=== PATIENT | female | born 1995 | race African-American/Black ===

== ENCOUNTER 2017-12-22 15:03 | Inpatient (IN) | payer OTHER ==
[~2017-12-22] VITALS: Ht 167.6 cm; Wt 58.1 kg
[2017-12-22] VITALS (10 sets, daily range): BP systolic 116–148; BP diastolic 52–92
--- OUTSIDE RECORDS SUMMARY | 2017-12-22 15:18 | XMS REPORT | Continuity of Care Document ---
Author Author [facility] Organization [facility] Address Unknown Phone Unavailable Allergies Active Description Code Type Severity Reaction Onset Reported/Identified Relationship to Patient Clinical Status Yes No Known Allergies No Known Allergies Drug Allergy Unknown N/A 2014 Medications There is no data. Problems There is no data. Procedures There is no data. Results There is no data. Encounters ACCT No. Visit Date/Time Discharge Status Pt. Type Provider Facility Loc./Unit Complaint [id number] 02/15/2015 23:14:00 02/16/2015 00:35:00 DIS Emergency Destini BLANCO, Kostas Meyers [facility]
--- OUTSIDE RECORDS SUMMARY | 2017-12-22 15:18 | XMS REPORT | Referral Summary ---
Author Author [facility] Organization [facility] Address Unknown Phone Unavailable Care Team Providers Care Director Case Name Role Phone No PCP, Pt States PCP Encounter [facility] [id number] Date(s): 09/12/15 - 09/12/15 [facility] [address] [place] [address] [facility] Discharge Diagnosis: Axillary abscess Discharge Disposition: 01-Home or Self Care Attending Physician: Lili Loyd MD Attending Physician: Provider, Immediate Care Admitting Physician: Provider, Immediate Care Vital Signs Most recent to 1 oldest [Reference Range]: Temperature Oral 36.7 degC [35.8-37.3 degC] (09/12/15 12:54 PM) Peripheral Pulse 72 bpm Rate [60-100 bpm] (09/12/15 12:54 PM) Blood Pressure 134/72 mmHg [90-140/60-90 mmHg] (09/12/15 12:54 PM) SpO2 99 % (09/12/15 12:54 PM) Problem List No data available for this section Allergies, Adverse Reactions, Alerts No Known Medication Allergies Medications Bactrim DS 800 mg-160 mg oral tablet 1 tabs, Oral, BID, X 10 days, # 20 tabs, 0 Refill(s), Pharmacy: [facility] #[id number] Start Date: 09/12/15 Stop Date: 09/22/15 Status: Ordered Results No data available for this section Immunizations No data available for this section Procedures Procedure Date Related Diagnosis Body Site Incision and drainage of abscess (eg, 09/12/15 carbuncle, suppurative hidradenitis, cutaneous or subcutaneous abscess, cyst, furuncle, or paronychia); simple or single.. Social History Social History Type Response Smoking Status Never smoker Assessment and Plan Extracted from: Title: Office Visit Note Author: Lili Loyd MD Date: 09/12/15 Assessment/Plan Axillary abscess After cleaning the area with iodine, Pat dry, incision made using scalpel number 10, plenty of purulent drainage was drained, purulent drainage was sent for culture and sensitivity, area cleaned, Neosporin ointment applied, covered with gauze, covered with OpSite. Instructions on good hand washing is recommended, monitor for worsening signs and symptoms, Motrin OTC when necessary pain, will follow-up with culture and sensitivity result, use antibiotic as ordered, follow-up with PCP, questions has been answered, patient was discharged in stable condition, patient was verbally understanding. Ordered: Drain Skin Abscess, Simple/Single 96677 Office Visit Level 3 Est 55156 Wound Culture Orders: sulfamethoxazole-trimethoprim, 1 tabs, Oral, BID, X 10 days, # 20 tabs , 0 Refill(s), Pharmacy: [facility] #[id number] Addendum Rocephin 1 g IM 1 by emily Loyd Patient was up-to-date in her tetanus vaccine. 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
[2017-12-22 15:50] LABS: BASOPHILS % (AUTO) 0 % (0-10); EOSINOPHILS % (AUTO) 0 % (0-10); HEMATOCRIT 35 % (35-52); HEMOGLOBIN 12.6 G/DL (11.5-16.0); LYMPHOCYTES # (AUTO) 1.2 X 10^3 (1.0-4.0); LYMPHOCYTES % (AUTO) 9 % (12-44); MEAN CORPUSCULAR HEMOGLOBIN 30 PG (25-34); MEAN CORPUSCULAR HGB CONC 36 G/DL (32-36); MEAN CORPUSCULAR VOLUME 82 FL (80-99); MEAN PLATELET VOLUME 10.9 FL (7.4-10.4); MONOCYTES # (AUTO) 1.5 X 10^3 (0.0-1.0); MONOCYTES % (AUTO) 12 % (0-12); NEUTROPHILS # (AUTO) 10.2 X 10^3 (1.8-7.8); NEUTROPHILS % (AUTO) 79 % (42-75); PLATELET COUNT 226 10^3/uL (130-400); RED BLOOD COUNT 4.21 10^6/uL (4.35-5.85); RED CELL DISTRIBUTION WIDTH 11.3 % (10.0-14.5); WHITE BLOOD COUNT 12.9 10^3/uL (4.3-11.0)
[2017-12-22] MEDS ORDERED: NS IV 1000 ML 1,000 ML IV SCH ×2 (15:58→17:09)
[2017-12-22 16:11] LABS: ALANINE AMINOTRANSFERASE 51 U/L (0-55); ALKALINE PHOSPHATASE 61 U/L (40-136); BILIRUBIN,TOTAL 0.5 MG/DL (0.1-1.0); BUN/CREATININE RATIO 18; CALCIUM 9.3 MG/DL (8.5-10.1); CARBON DIOXIDE 22 MMOL/L (21-32); CHLORIDE 106 MMOL/L (98-107); CREATINE KINASE 129 U/L (29-168); CREATININE SERUM 0.78 MG/DL (0.60-1.30); GFR ESTIMATED > 60; GLUCOSE 115 MG/DL (70-105); POTASSIUM 3.7 MMOL/L (3.6-5.0); SODIUM 136 MMOL/L (135-145); TOTAL PROTEIN 7.1 GM/DL (6.4-8.2)
--- NOTE | 2017-12-22 16:12 | Diagnostic Imaging Report ---
INDICATION: Dizziness and weakness. EXAMINATION: Portable chest. FINDINGS: The lungs are well-aerated. There are no infiltrates. No masses. The heart is not enlarged. No hilar adenopathy. No pneumothorax or pleural effusion. No bony abnormality. IMPRESSION: Normal portable chest. Dictated by: Dictated on workstation # [id number]
[2017-12-22] MEDS ORDERED: hydrOXYzine (VISTARIL) 25 MG CAP PO ONE (17:15)
[2017-12-22 17:16] LABS: FREE T4 (FREE THYROXINE) 3.26 NG/DL (0.70-1.48)
[2017-12-22 17:17] LABS: BILIRUBIN,URINE NEGATIVE (NEGATIVE); CLARITY,URINE CLEAR; COLOR,URINE YELLOW; GLUCOSE, URINE (UA) NEGATIVE (NEGATIVE); KETONES,URINE NEGATIVE (NEGATIVE); LEUKOCYTE ESTERASE ,URINE 1+ (NEGATIVE); NITRITE,URINE NEGATIVE (NEGATIVE); PH,URINE 5 (5-9); PROTEIN,URINE NEGATIVE (NEGATIVE); UROBILINOGEN,URINE NORMAL (NORMAL)
[2017-12-22 17:26] LABS: BACTERIA,URINE NEGATIVE /HPF; WBC,URINE RARE /HPF
[2017-12-22 17:30] LABS: AMPHETAMINE SCREEN, URINE NEGATIVE (NEGATIVE); BARBITURATE SCREEN URINE NEGATIVE (NEGATIVE); BENZODIAZEPINES SCREEN URINE NEGATIVE (NEGATIVE); CANNABINOID SCREEN, URINE NEGATIVE (NEGATIVE); COCAINE SCREEN URINE NEGATIVE (NEGATIVE); METHADONE STAT NEGATIVE (NEGATIVE); METHAMPHETAMINE SCREEN URINE S NEGATIVE (NEGATIVE); OPIATE SCREEN URINE NEGATIVE (NEGATIVE); OXYCODONE STAT NEGATIVE (NEGATIVE); PROPOXYPHENE STAT NEGATIVE (NEGATIVE); TRICYCLIC ANTIDEPRESSANTS SCRE NEGATIVE (NEGATIVE)
--- OUTSIDE RECORDS SUMMARY | 2017-12-22 20:11 | XMS REPORT | Continuity of Care Document ---
Author Author [facility] Organization [facility] Address Unknown Phone Unavailable Allergies Active Description Code Type Severity Reaction Onset Reported/Identified Relationship to Patient Clinical Status Yes No Known Allergies No Known Allergies Drug Allergy Unknown N/A 2014 Medications There is no data. Problems There is no data. Procedures There is no data. Results There is no data. Encounters ACCT No. Visit Date/Time Discharge Status Pt. Type Provider Facility Loc./Unit Complaint [id number] 02/15/2015 23:14:00 02/16/2015 00:35:00 DIS Emergency Destini BLANCO, Kostas Meyers [facility]
[2017-12-22] MEDS ORDERED: HYDROcodone/APAP 5 MG/325 MG (LORTAB) TAB PO PRN (20:45)
[2017-12-22] MEDS ORDERED: LORazepam INJ 2 MG/ML (ATIVAN) VIAL IVP PRN (20:45)
[2017-12-22] MEDS ORDERED: fentaNYL INJECTION 100 MCG/2 ML AMP IVP PRN (20:45)
[2017-12-22] MEDS ORDERED: IBUPROFEN TABLET 200 MG TAB PO PRN (20:45)
[2017-12-22] MEDS ORDERED: ACETAMINOPHEN 500 MG TAB (TYLENOL) PO PRN (20:45)
[2017-12-22] MEDS ORDERED: ONDANSETRON 4 MG/2 ML (SDV) Z0FRAN IVP PRN (20:45)
[2017-12-22] MEDS: NS IV 1000 ML 1,000 ML IV SCH (21:00)
[2017-12-22] MEDS: CHOLESTYRAMINE 4 GM (QUESTRAN LITE, PREVALITE) PKT PO SCH (21:00)
[2017-12-22] MEDS: HYDROCORTISONE 100 MG/2 ML (Solu-CORTEF) VIAL IV SCH (21:00)
[2017-12-23] VITALS (13 sets, daily range): BP systolic 99–147; BP diastolic 40–88
[2017-12-23] MEDS: PROPYLTHIOURACIL 50 MG PO SCH ×7 (00:32→23:21)
[2017-12-23] MEDS: meTOprolol 5 MG/5 ML (LOPRESSOR) VIAL IV SCH ×3 (00:33→10:16)
[2017-12-23 03:33] LABS: BASOPHILS % (AUTO) 0 % (0-10); EOSINOPHILS % (AUTO) 0 % (0-10); HEMATOCRIT 31 % (35-52); LYMPHOCYTES # (AUTO) 1.1 X 10^3 (1.0-4.0); LYMPHOCYTES % (AUTO) 25 % (12-44); MEAN CORPUSCULAR HEMOGLOBIN 30 PG (25-34); MEAN CORPUSCULAR HGB CONC 35 G/DL (32-36); MEAN CORPUSCULAR VOLUME 84 FL (80-99); MEAN PLATELET VOLUME 10.7 FL (7.4-10.4); MONOCYTES # (AUTO) 0.4 X 10^3 (0.0-1.0); MONOCYTES % (AUTO) 8 % (0-12); NEUTROPHILS % (AUTO) 67 % (42-75); PLATELET COUNT 169 10^3/uL (130-400); RED BLOOD COUNT 3.72 10^6/uL (4.35-5.85); RED CELL DISTRIBUTION WIDTH 11.4 % (10.0-14.5); WHITE BLOOD COUNT 4.5 10^3/uL (4.3-11.0)
[2017-12-23 04:14] LABS: ALANINE AMINOTRANSFERASE 47 U/L (0-55); ALBUMIN 3.2 GM/DL (3.2-4.5); ALKALINE PHOSPHATASE 50 U/L (40-136); BILIRUBIN,TOTAL 0.4 MG/DL (0.1-1.0); BUN/CREATININE RATIO 19; CALCIUM 8.1 MG/DL (8.5-10.1); CARBON DIOXIDE 19 MMOL/L (21-32); CHLORIDE 113 MMOL/L (98-107); CREATININE SERUM 0.59 MG/DL (0.60-1.30); GFR ESTIMATED > 60; GLUCOSE 124 MG/DL (70-105); MAGNESIUM 1.7 MG/DL (1.8-2.4); PHOSPHORUS 4.2 MG/DL (2.3-4.7); POTASSIUM 4.1 MMOL/L (3.6-5.0); SODIUM 139 MMOL/L (135-145); TOTAL PROTEIN 5.6 GM/DL (6.4-8.2)
--- NOTE | 2017-12-23 04:47 | ED Syncope ---
General Chief Complaint: General Problems/Pain Stated Complaint: THYROID STORM Nursing Triage Note: AMB TO ROOM WITH. HAS BEEN AT [employer]ARD STANDING OUTSIDE BECAME DIZZY AND WEAK. REPORTS HAS NOT BEEN EATING RIGHT FOR SEVERAL DAYS. ON ADMIT ALSO APPEARS ANXIOUS AND TEARFUL. Source of Information: Patient Exam Limitations: No Limitations History of Present Illness Date Seen by Provider: Dec 22, 2017 Time Seen by Provider: 15:15 Initial Comments 22-year-old female patient presents to the emergency Department with reports of feeling dizzy and lightheaded while at [employer] today. Patient states she is from [place] and hear through the weekend for [employer]'s training. States she's not had much of an appetite and has not been eating much the last several days. She tried drinking lemonade thinking her blood sugar was low, without improvement in symptoms. Patient is anxious, tachycardic, avoids eye contact. Initially patient is very difficult to get information from. Repeatedly states "I don't want to talk about it." I have discussed with the patient that it would be helpful for her to elaborate on events leading up to today to help me care for her appropriately. Patient does report being under a lot of stress recently. States she has had some traumatizing events and her preteen years. Is also had stressors between her family and herself. She has had difficulty finding a job and [place]. States her father lives in [place] and her mother lives in [place]. Her father is also in the [employer]. Has felt depressed and anxious for quite some time. States she has had thoughts of the last several weeks of harming yourself as well as occasionally having thoughts of how she would proceed with harming herself. Does not have a definite plan. She does suffer from difficulty sleeping, palpitations, and irritability. She does admit to losing weight, but is unsure of exactly how much. Patient states approximately one year ago she weighed 130 pounds. Patient is currently on her menstrual cycle now. Location Injury Occurred: denies known injury Symptoms Prior to Episode: Lightheadedness, Nausea, Rapid Heart Rate Precipitating Factors: Standing (standing outside) Loss of Consciousness: No Loss of Consciousness Allergies and Home Medications Allergies Coded Allergies: avocado (Verified Allergy, Unknown, 12/22/17) latex (Verified Allergy, Unknown, 12/22/17) Home Medications No Active Prescriptions or Reported Meds Patient Home Medication List Home Medication List Reviewed: Yes Constitutional: see HPI, No chills, No diaphoresis, dizziness, No fever, No malaise, weakness, weight loss EENTM: see HPI Respiratory: No cough, No dyspnea on exertion, No phlegm, No short of breath Cardiovascular: No chest pain, No edema, palpitations, No syncope Gastrointestinal: No abdominal pain, No constipation, No diarrhea, No hematemesis, loss of appetite, No melena, nausea Genitourinary: No decreased output, No discharge, No dysuria, No frequency, No hematuria, No pain : No Musculoskeletal: no symptoms reported Skin: no symptoms reported Psychiatric/Neurological: See HPI, Anxiety, Depressed, Denies Headache, Denies Numbness, Denies Paresthesia, Denies Seizure, Denies Tingling, Denies Weakness All Other Systems Reviewed Negative Unless Noted: Yes (Negative excepted noted.) Past Ezosjpu-Lvpoup-Pqrvro Hx Patient Social History Alcohol Use: Occasionally Uses Recreational Drug Use: No Smoking Status: Never a Smoker Recent Foreign Travel: No Contact w/Someone Who Travel: No Recent Infectious Disease Expo: No Immunizations Up To Date Date of Influenza Vaccine: Oct 29, 2017 Seasonal Allergies Seasonal Allergies: No Surgeries History of Surgeries: No Respiratory History of Respiratory Disorde: No Cardiovascular History of Cardiac Disorders: No Neurological History of Neurological Disord: No Reproductive System : No Hx Reproductive Disorders: No Female Reproductive Disorders: Denies Genitourinary History of Genitourinary Disor: No Gastrointestinal History of Gastrointestinal Di: No Endocrine History of Endocrine Disorders: No HEENT History of HEENT Disorders: No Cancer History of Cancer: No Psychosocial History of Psychiatric Problem: Yes Behavioral Health Disorders: Anxiety Integumentary History of Skin or Integumenta: No Reviewed Nursing Assessment Reviewed/Agree w Nursing PMH: Yes Family Medical History Significant Family History: No Pertinent Family Hx Family Medial History: Patient reports no known family medical history. Physical Exam Vital Signs Vital Signs - First Documented 12/22/17 15:13 Temp 98.2 Pulse 137 Resp 18 B/P (MAP) 135/87 (103) Pulse Ox 98 O2 Delivery Room Air Capillary Refill : Less Than 3 Seconds General Appearance: WD/WN, Mild Distress (patient is very tearful and anxious.) HEENT: PERRL/EOMI, TMs Normal, Normal ENT Inspection, Pharynx Normal Neck: Normal Inspection, Non Tender, Supple Cardiovascular: No Edema, No Gallop, No Murmur, Normal Peripheral Pulses, Tachycardia Respiratory: Lungs Clear, Normal Breath Sounds, No Accessory Muscle Use, No Respiratory Distress Gastrointestinal: Normal Bowel Sounds, No Organomegaly, Non Tender, Soft Back: Normal Inspection Extremities: Normal Capillary Refill, No Calf Tenderness, No Pedal Edema, Other (vitiligo of the hands over the mcp, pip, and dip joints of the bilateral hands noted. 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 anxious.) Cranial Nerves: Normal Hearing, Normal Speech, PERRL Coordination/Gait: Normal Gait Motor/Sensory: No Motor Deficit, No Sensory Deficit Skin: Normal Color, Warm/Dry, Other Progress/Results/Core Measures Results/Orders Lab Results Laboratory Tests Test 12/22/17 15:36 12/22/17 17:12 Range/Units White Blood Count 12.9 H 4.3-11.0 10^3/uL Red Blood Count 4.21 L 4.35-5.85 10^6/uL Hemoglobin 12.6 11.5-16.0 G/DL Hematocrit 35 35-52 % Mean Corpuscular Volume 82 80-99 FL Mean Corpuscular Hemoglobin 30 25-34 PG Mean Corpuscular Hemoglobin Concent 36 32-36 G/DL Red Cell Distribution Width 11.3 10.0-14.5 % Platelet Count 226 130-400 10^3/uL Mean Platelet Volume 10.9 H 7.4-10.4 FL Neutrophils (%) (Auto) 79 H 42-75 % Lymphocytes (%) (Auto) 9 L 12-44 % Monocytes (%) (Auto) 12 0-12 % Eosinophils (%) (Auto) 0 0-10 % Basophils (%) (Auto) 0 0-10 % Neutrophils # (Auto) 10.2 H 1.8-7.8 X 10^3 Lymphocytes # (Auto) 1.2 1.0-4.0 X 10^3 Monocytes # (Auto) 1.5 H 0.0-1.0 X 10^3 Eosinophils # (Auto) 0.0 0.0-0.3 10^3/uL Basophils # (Auto) 0.0 0.0-0.1 10^3/uL Sodium Level 136 135-145 MMOL/L Potassium Level 3.7 3.6-5.0 MMOL/L Chloride Level 106 98-107 MMOL/L Carbon Dioxide Level 22 21-32 MMOL/L Anion Gap 8 5-14 MMOL/L Blood Urea Nitrogen 14 7-18 MG/DL Creatinine 0.78 0.60-1.30 MG/DL Estimat Glomerular Filtration Rate > 60 BUN/Creatinine Ratio 18 Glucose Level 115 H 70-105 MG/DL Calcium Level 9.3 8.5-10.1 MG/DL Magnesium Level 2.0 1.8-2.4 MG/DL Total Bilirubin 0.5 0.1-1.0 MG/DL Aspartate Amino Transf (AST/SGOT) 28 5-34 U/L Alanine Aminotransferase (ALT/SGPT) 51 0-55 U/L Alkaline Phosphatase 61 40-136 U/L Total Creatine Kinase 129 29-168 U/L Troponin I < 0.30 <0.30 NG/ML C-Reactive Protein High Sensitivity 0.04 0.00-0.50 MG/DL Total Protein 7.1 6.4-8.2 GM/DL Albumin 4.0 3.2-4.5 GM/DL Free Thyroxine 3.26 H 0.70-1.48 NG/DL TSH [place] Testing 0.00 L 0.35-4.94 UIU/ML Serum Alcohol < 10 <10 MG/DL Urine Color YELLOW Urine Clarity CLEAR Urine pH 5 5-9 Urine Specific [place] 1.010 L 1.016-1.022 Urine Protein NEGATIVE NEGATIVE Urine Glucose (UA) NEGATIVE NEGATIVE Urine Ketones NEGATIVE NEGATIVE Urine Nitrite NEGATIVE NEGATIVE Urine Bilirubin NEGATIVE NEGATIVE Urine Urobilinogen NORMAL NORMAL MG/DL Urine Leukocyte Esterase 1+ H NEGATIVE Urine RBC (Auto) 3+ H NEGATIVE Urine RBC NONE /HPF Urine WBC RARE /HPF Urine Squamous Epithelial Cells 5-10 /HPF Urine Crystals NONE /LPF Urine Bacteria NEGATIVE /HPF Urine Casts NONE /LPF Urine Mucus NEGATIVE /LPF Urine Culture Indicated NO Urine Test NEGATIVE NEGATIVE Urine Opiates Screen NEGATIVE NEGATIVE Urine Oxycodone Screen NEGATIVE NEGATIVE Urine Methadone Screen NEGATIVE NEGATIVE Urine Propoxyphene Screen NEGATIVE NEGATIVE Urine Barbiturates Screen NEGATIVE NEGATIVE Ur Tricyclic Antidepressants Screen NEGATIVE NEGATIVE Urine Phencyclidine Screen NEGATIVE NEGATIVE Urine Amphetamines Screen NEGATIVE NEGATIVE Urine Methamphetamines Screen NEGATIVE NEGATIVE Urine Benzodiazepines Screen NEGATIVE NEGATIVE Urine Cocaine Screen NEGATIVE NEGATIVE Urine Cannabinoids Screen NEGATIVE NEGATIVE My Orders Orders - GHAZAL BRAUN Saline Lock/Iv-Start (12/22/17 15:28) Ekg Tracing (12/22/17 15:28) Monitor-Rhythm Ecg Trace Only (12/22/17 15:28) Alcohol (12/22/17 15:28) Cbc With Automated Diff (12/22/17 15:28) Comprehensive Metabolic Panel (12/22/17 15:28) Creatine Kinase (12/22/17 15:28) Hs C Reactive Protein (12/22/17 15:28) Drug Screen Stat (Urine) (12/22/17 15:28) Magnesium (12/22/17 15:28) Thyroid Analyzer (12/22/17 15:28) Troponin I (12/22/17 15:28) Ua Culture If Indicated (12/22/17 15:28) Chest 1 View, Ap/Pa Only (12/22/17 15:28) Ns Iv 1000 Ml (Sodium Chloride 0.9%) (12/22/17 15:58) Free T4 (Free Thyroxine) (12/22/17 15:36) Saline Lock/Iv-Start (12/22/17 17:09) Ns Iv 1000 Ml (Sodium Chloride 0.9%) (12/22/17 17:09) Hydroxyzine Oral (Vistaril Capsule) (12/22/17 17:15) Hcg,Qualitative Urine (12/22/17 17:23) General/Regular (12/22/17 Lunch) General/Regular (12/22/17 Lunch) Medications Given in ED Vital Signs/I&O Vital Sign - Last 12Hours 12/22/17 12/22/17 12/22/17 12/22/17 15:13 17:40 19:00 20:02 Temp 98.2 98.0 Pulse 137 120 137 134 Resp 18 18 23 20 B/P (MAP) 135/87 (103) 142/92 (109) 148/74 (98) 139/79 (98) Pulse Ox 98 100 99 99 O2 Delivery Room Air Room Air Room Air Intake and Output 12/23/17 00:00 Intake Total 2000 ml Balance 2000 ml Blood Pressure Mean: 82 ECG Initial ECG Impression Date: Dec 22, 2017 Initial ECG Impression Time: 15:40 Initial ECG Rate: 132 Initial ECG Rhythm: S.Tach Initial ECG Comparisson: No Previous ECG Available Comment Sinus tachycardia. No STEMI or arrhythmia noted. ECG reviewed and discussed with Dr. Godoy. Diagnostic Imaging Diagonstic Imaging: Xray Plain Films/CT/US/NM/MRI: chest Comments FINDINGS: The lungs are well-aerated. There are no infiltrates. No masses. The heart is not enlarged. No hilar adenopathy. No pneumothorax or pleural effusion. No bony abnormality. IMPRESSION: Normal portable chest. Dictated by: Dictated on workstation # [id number] Reviewed: Reviewed by Me (radiology report reviewed by me) Departure Communication (Admissions) Communication Dr. Brown graciously accepts patient to her internal medicine service for Lopressor, PTU, echo, cardiac monitoring in ICU, and further evaluation for thyroid storm. Progress Notes Patient was weighed in the emergency department. 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 Patient reports weighing 130 pounds one year ago. Impression Impression: Primary Impression: Thyroid storm Additional Impressions: Anxiety as acute reaction to gross stress Suicidal ideation Vitiligo Disposition: ADMITTED INPATIENT Condition: Stable Admissions Decision to Admit Reason: Admit from ER (General) Decision to Admit/Date: Dec 22, 2017 Departure-Patient Inst. Referrals: NO,LOCAL PHYSICIAN (PCP) Primary Care Physician Scripts No Active Prescriptions or Reported Meds GHAZAL BRAUN Dec 23, 2017 04:47
[2017-12-23] MEDS: HYDROCORTISONE 100 MG/2 ML (Solu-CORTEF) VIAL IV SCH ×3 (05:10→21:45)
[2017-12-23] MEDS: NS IV 1000 ML 1,000 ML IV SCH (05:10)
[2017-12-23] MEDS: MAGNESIUM 1 GM/100 ML IVPB 100 ML IV SCH ×2 (05:11→06:32)
[2017-12-23] MEDS ORDERED: MAGNESIUM 1 GM/100 ML IVPB 100 ML IV SCH (06:00)
[2017-12-23] MEDS ORDERED: KCL 20 MEQ TAB (K-DUR) PO SCH (06:00)
[2017-12-23] MEDS ORDERED: POTASSIUM CL 10MEQ/50ML IVPB 50 ML IV SCH (06:00)
--- NOTE | 2017-12-23 09:43 | Diagnostic Imaging Report ---
INDICATION: Shortness of breath EXAM: Portable chest at 3:48 AM FINDINGS: The heart size and pulmonary vascularity are normal. The lungs are clear. There are no effusions or pneumothoraces. IMPRESSION: Negative chest. Dictated by: Dictated on workstation # [id number]
[2017-12-23] MEDS: CHOLESTYRAMINE 4 GM (QUESTRAN LITE, PREVALITE) PKT PO SCH ×4 (10:16→20:08)
[2017-12-23] MEDS ORDERED: meTOprolol SUCCINATE 100 MG (TOPROL XL) TAB PO ONE (11:15)
--- NOTE | 2017-12-23 11:47 | History & Physical-Hospitalist ---
HPI History of Present Illness: HPI/Chief Complaint CC: Syncope with nausea and palpitations HPI: This is a 22yoWF from [place], [place] who was in [place] for [employer] training who presented to the ER after syncope sustained during training session. Presented to the ER and extensive w/u ensued due to 30# wt loss in past few months. Pt was found to have findings c/w acute thyroid storm in need of critical care management. Pt was placed on PTU 200mg PO Q4hrs along with Hydrocortisone and ECHO was ordered and Dr Mares and Dr Oconnor was consulted. Pt did well through the night and is no longer nauseated and is drinking and eating well. Will transfer to 4th floor, heplock fluid and will ambulate. Paper was filled out for and given to ICU. Source: patient, RN/MD Exam Limitations: no limitations Date Seen 12/23/17 Time Seen by Provider: 10:30 Attending Physician Ingrid Love DO PCP No,Local Physician Referring Physician Date of Admission Dec 22, 2017 at 20:08 Home Medications & Allergies Home Medications Reviewed patient Home Medication Reconciliation Form Allergies Allergies Coded Allergies avocado (Verified Allergy, Unknown, 12/22/17) latex (Verified Allergy, Unknown, 12/22/17) Past Qykfbua-Fuamzp-Wizlkn Hx Patient Social History Marrital Status: single Employed/Student: employed ([employer]) Alcohol Use: Occasionally Uses Recreational Drug Use: No Smoking Status: Never a Smoker Physical Abuse Screen: No Sexual Abuse: No Recent Foreign Travel: No Contact w/other who traveled: No Recent Infectious Disease Expo: No Immunizations Up To Date Date of Influenza Vaccine: Oct 29, 2017 Seasonal Allergies Seasonal Allergies: No Surgeries No Respiratory No Cardiovascular No Neurological No Reproductive System : No Hx Reproductive Disorders: No Female Reproductive Disorders: Denies Genitourinary No Gastrointestinal No Endocrine History of Endocrine Disorders: No HEENT History of HEENT Disorders: No Cancer No Psychosocial History of Psychiatric Problem: Yes Behavioral Health Disorders: Anxiety Integumentary History of Skin or Integumenta: No Reviewed Nursing Assessment Reviewed/Agree w Nursing PMH: Yes Family Medical History Significant Family History: No Pertinent Family Hx Family Hx: Patient reports no known family medical history. Review of Systems Constitutional: see HPI, diaphoresis, dizziness, fever, malaise, weakness, weight loss EENTM: blurred vision Respiratory: no symptoms reported Cardiovascular: palpitations Gastrointestinal: loss of appetite, nausea Genitourinary: no symptoms reported Musculoskeletal: no symptoms reported Skin: no symptoms reported Psychiatric/Neurological: No Symptoms Reported All Other Systems Reviewed Negative Unless Noted: Yes Physical Exam Physical Exam Vital Signs Vital Signs - First Documented 12/22/17 15:13 Temp 98.2 Pulse 137 Resp 18 B/P (MAP) 135/87 (103) Pulse Ox 98 O2 Delivery Room Air Capillary Refill : Less Than 3 Seconds General Appearance: No Apparent Distress, WD/WN, Chronically ill, Thin Eyes: Bilateral Eye Normal Inspection, Bilateral Eye PERRL HEENT: PERRL/EOMI, Normal ENT Inspection, Pharynx Normal Neck: Full Range of Motion, Normal Inspection, Non Tender, Supple, Carotid Bruit Respiratory: Chest Non Tender, Lungs Clear, Normal Breath Sounds, No Accessory Muscle Use, No Respiratory Distress Cardiovascular: No Edema, No Gallop, No JVD, No Murmur, Normal Peripheral Pulses, Tachycardia Gastrointestinal: Normal Bowel Sounds, No Organomegaly, No Pulsatile Mass, Non Tender, Soft Back: Normal Inspection, No CVA Tenderness, No Vertebral Tenderness Extremity: Normal Capillary Refill, Normal Inspection, Normal Range of Motion, Non Tender, No Calf Tenderness, No Pedal Edema Neurologic/Psychiatric: Alert, Oriented x3, No Motor/Sensory Deficits, Normal Mood/Affect Skin: Normal Color, Warm/Dry Lymphatic: No Adenopathy Results Results/Procedures Lab Laboratory Tests 12/22/17 15:36 12/23/17 03:25 Assessment/Plan Admission Diagnosis Assessment: Acute thyroid storm critically ill now stable on PTU and Hydrocortisone Admission Status: Inpatient Order (span 2 midnights) Reason for Inpatient Admission: Require ICU care for critical illness due to thyroid hormone overproduction Assessment and Plan Plan: Transfer to floor Appreciate Health Evaluator and Cardiology consultation Clinical Quality Measures DVT/VTE Risk/Contraindication: Risk Factor Score Per Nursin RFS Level Per Nursing on Admit: 1=Low/No VTE PPX INGRID LOVE DO Dec 23, 2017 11:47
--- NOTE | 2017-12-23 11:57 | Consultation-Cardiology ---
HPI-Cardiology Cardiology Consultation: Date of Consultation 12/23/17 Time Seen by Provider: 10:10 Date of Admission Attending Physician Ingrid Brown DO Admitting Physician No,Local Physician Consulting Physician QUIANA SAXENA MD, MA, FACP, FACC, FSCAI, CCDS HPI: Chief Complaint: Weakness, dizziness, weight loss, palpitations HPI: [address] to Dr Brown's service on 12/22/17 with thyroid storm. The patient reports increasing weakness, malaise, weight loss and a continuous feeling of a rapid heart beat for at least 3 months. Has had progressive deterioration of stamina. Has had increasing exertional shortness of breath. Does not report cp or miriam syncope or leg swelling. Has had dizziness Review of Systems-Cardiology Review of Systems Constitutional: As described under HPI Eyes: No vision change Ears/Nose/Throat: No ear discharge, No nasal drainage, No recent hearing loss Respiratory: As described under HPI Cardiovascular: As described under HPI Gastrointestinal: No constipation, No diarrhea, No nausea, No vomiting Genitourinary: No dysuria, No hematuria, No urine frequency changes : No Musculoskeletal: No back pain, No joint pain Skin: No rash, No ulcerations Psychiatric/Neurological: No seizure, No focal weakness, No syncope Hematologic: No bleeding abnormalities All Other Systems Reviewed Negative Unless Noted: Yes (Negative excepted noted.) [id number] Hx Patient Social History Alcohol Use: Occasionally Uses Recreational Drug Use: No Smoking Status: Never a Smoker Recent Foreign Travel: No Recent Infectious Disease Expo: No Hospitalization with Isolation: Denies Physical Abuse Screen: No Sexual Abuse: No Immunizations Up To Date Date of Influenza Vaccine: Oct 29, 2017 Past Medical History PMH As described under Assessment. Family Medical History Family Medical History: Does not report fam h/o early CAD or SCD Family History: Patient reports no known family medical history. Allergies and Home Medications Allergies Coded Allergies: avocado (Verified Allergy, Unknown, 12/22/17) latex (Verified Allergy, Unknown, 12/22/17) Home Medications Unable to Obtain Active Prescriptions or Reported Meds Patient Home Medication List Home Medication List Reviewed: Yes Physical Exam-Cardiology Physical Exam Vital Signs/I&O Vital Sign - Last 12Hours 12/23/17 12/23/17 12/23/17 12/23/17 00:00 00:00 01:00 01:00 Temp 97.3 Pulse 92 104 107 Resp 21 14 B/P (MAP) 117/58 (77) 129/78 (95) Pulse Ox 97 98 O2 Delivery Room Air Room Air 12/23/17 12/23/17 12/23/17 12/23/17 02:00 03:00 03:39 04:00 Temp 96.9 Pulse 91 73 85 Resp 21 15 21 B/P (MAP) 99/40 (59) 99/56 (70) 113/67 (82) Pulse Ox 97 97 98 O2 Delivery Room Air Room Air Room Air 12/23/17 12/23/17 12/23/17 12/23/17 05:00 06:00 07:00 07:00 Pulse 86 113 106 106 Resp 20 26 26 B/P (MAP) 108/58 (75) 121/68 (85) 144/88 (106) Pulse Ox 97 98 99 O2 Delivery Room Air Room Air Room Air 12/23/17 12/23/17 12/23/17 12/23/17 08:00 08:22 09:00 10:00 Temp 98.6 Pulse 112 128 133 Resp 11 25 34 B/P (MAP) 147/83 (104) 129/70 (89) 129/68 (88) Pulse Ox 99 98 98 O2 Delivery Room Air Room Air Room Air Room Air Intake and Output 12/23/17 00:00 Intake Total 2000 ml Output Total 300 ml Balance 1700 ml Capillary Refill : Less Than 3 Seconds Constitutional: AAO x 3, well-developed, other (Thin-appearing) HEENT: PERRL, EOMI, hearing is well preserved, No xanthelasmas are seen Neck: No carotid bruit, carotid pulses are 2 + bilaterally, with good upstrokes Respiratory: No accessory muscle use, lungs clear to auscultation, No crackles , No rhonchi, No rales, No stridor, No wheezing Cardiovascular: regular rate-rhythm, S1 and S2, systolic murmur (soft JEANNE at card base) Gastrointestinal: No tender, soft, No guarding, No rebound, audible bowel sounds Extremities: No clubbing, No cyanosis, No significant edema Neurologic/Psychiatric: oriented x 3, grossly intact, power is 5/5 both on sides Skin: No rash on exposed areas, No ulcerations on exposed areas Data Review Labs Laboratory Tests 12/22/17 15:36: White Blood Count 12.9H, Red Blood Count 4.21L, Hemoglobin 12.6, Hematocrit 35, Mean Corpuscular Volume 82, Mean Corpuscular Hemoglobin 30, Mean Corpuscular Hemoglobin Concent 36, Red Cell Distribution Width 11.3, Platelet Count 226, Mean Platelet Volume 10.9H, Neutrophils (%) (Auto) 79H, Lymphocytes (%) (Auto) 9L, Monocytes (%) (Auto) 12, Eosinophils (%) (Auto) 0, Basophils (%) (Auto) 0, Neutrophils # (Auto) 10.2H, Lymphocytes # (Auto) 1.2, Monocytes # (Auto) 1.5H, Eosinophils # (Auto) 0.0, Basophils # (Auto) 0.0, Sodium Level 136, Potassium Level 3.7, Chloride Level 106, Carbon Dioxide Level 22, Anion Gap 8, Blood Urea Nitrogen 14, Creatinine 0.78, Estimat Glomerular Filtration Rate > 60, BUN/ Creatinine Ratio 18, Glucose Level 115H, Calcium Level 9.3, Magnesium Level 2.0 , Total Bilirubin 0.5, Aspartate Amino Transf (AST/SGOT) 28, Alanine Aminotransferase (ALT/SGPT) 51, Alkaline Phosphatase 61, Total Creatine Kinase 129, Troponin I < 0.30, C-Reactive Protein High Sensitivity 0.04, Total Protein 7.1, Albumin 4.0, Free Thyroxine 3.26H, TSH [place] Testing 0.00L, Serum Alcohol < 10 12/22/17 17:12: Urine Color YELLOW, Urine Clarity CLEAR, Urine pH 5, Urine Specific [place] 1.010L, Urine Protein NEGATIVE, Urine Glucose (UA) NEGATIVE, Urine Ketones NEGATIVE, Urine Nitrite NEGATIVE, Urine Bilirubin NEGATIVE, Urine Urobilinogen NORMAL, Urine Leukocyte Esterase 1+H, Urine RBC (Auto) 3+H, Urine RBC NONE, Urine WBC RARE, Urine Squamous Epithelial Cells 5-10, Urine Crystals NONE, Urine Bacteria NEGATIVE, Urine Casts NONE, Urine Mucus NEGATIVE, Urine Culture Indicated NO, Urine Test NEGATIVE, Urine Opiates Screen NEGATIVE, Urine Oxycodone Screen NEGATIVE, Urine Methadone Screen NEGATIVE, Urine Propoxyphene Screen NEGATIVE, Urine Barbiturates Screen NEGATIVE, Ur Tricyclic Antidepressants Screen NEGATIVE, Urine Phencyclidine Screen NEGATIVE, Urine Amphetamines Screen NEGATIVE, Urine Methamphetamines Screen NEGATIVE, Urine Benzodiazepines Screen NEGATIVE, Urine Cocaine Screen NEGATIVE, Urine Cannabinoids Screen NEGATIVE 12/23/17 03:25: White Blood Count 4.5, Red Blood Count 3.72L, Hemoglobin 11.0L, Hematocrit 31L, Mean Corpuscular Volume 84, Mean Corpuscular Hemoglobin 30, Mean Corpuscular Hemoglobin Concent 35, Red Cell Distribution Width 11.4, Platelet Count 169, Mean Platelet Volume 10.7H, Neutrophils (%) (Auto) 67, Lymphocytes (%) (Auto) 25 , Monocytes (%) (Auto) 8, Eosinophils (%) (Auto) 0, Basophils (%) (Auto) 0, Neutrophils # (Auto) 3.0, Lymphocytes # (Auto) 1.1, Monocytes # (Auto) 0.4, Eosinophils # (Auto) 0.0, Basophils # (Auto) 0.0, Sodium Level 139, Potassium Level 4.1, Chloride Level 113H, Carbon Dioxide Level 19L, Anion Gap 7, Blood Urea Nitrogen 11, Creatinine 0.59L, Estimat Glomerular Filtration Rate > 60, BUN /Creatinine Ratio 19, Glucose Level 124H, Calcium Level 8.1L, Magnesium Level 1.7L, Total Bilirubin 0.4, Aspartate Amino Transf (AST/SGOT) 35H, Alanine Aminotransferase (ALT/SGPT) 47, Alkaline Phosphatase 50, Total Protein 5.6L, Albumin 3.2, Phosphorus Level 4.2 Laboratory Tests 12/22/17 15:36 12/23/17 03:25 A/P-Cardiology Assessment/Admission Diagnosis Thyrotoxicosis, being managed by Dr Brown Sinus tachycardia and somewhat elevated blood pressure, likely due to thyrotoxicosis Discussion and Recomendations * I discussed her case in detail with Dr Brown * BB to control heart rate and bp * Monitor labs * Echo to evaluated for structural heart disease * Management of thyrotoxicosis by Dr Brown Clinical Quality Measures DVT/VTE Risk/Contraindication: Risk Factor Score Per Nursin RFS Level Per Nursing on Admit: 1=Low/No VTE PPX QUIANA SAXENA MD [facility] Dec 23, 2017 11:57
[2017-12-23] MEDS ORDERED: ALPRAZolam 0.25 MG (XANAX) TAB PO PRN (12:00)
[2017-12-24] MEDS: PROPYLTHIOURACIL 50 MG PO SCH ×3 (04:02→12:02)
[2017-12-24 04:10] VITALS: BP 130/79
[2017-12-24 06:13] VITALS: BP 130/79
[2017-12-24] MEDS: HYDROCORTISONE 100 MG/2 ML (Solu-CORTEF) VIAL IV SCH (06:30)
[2017-12-24 08:00] VITALS: BP 125/70
[2017-12-24] MEDS ORDERED: meTOprolol SUCCINATE 100 MG (TOPROL XL) TAB PO SCH (09:00)
--- NOTE | 2017-12-24 09:20 | Progress Note-Cardiology ---
Cardiology SOAP Progress Note Objective: I&O/Vital Signs Weight (Pounds): 128 Weight (Ounces): 0.0 Weight (Calculated Kilograms): 58.500841 Constitutional: AAO x 3, well-developed, other (Thin-appearing) Respiratory: No accessory muscle use, lungs clear to auscultation, No crackles , No rhonchi, No rales, No stridor, No wheezing Cardiovascular: regular rate-rhythm, S1 and S2, systolic murmur (soft JEANNE at card base) Gastrointestional: No tender, soft, No guarding, No rebound, audible bowel sounds Extremities: No clubbing, No cyanosis, No significant edema Neurologic/Psychiatric: oriented x 3, grossly intact, power is 5/5 both on sides Skin: No rash on exposed areas, No ulcerations on exposed areas Results/Procedures: Labs Microbiology 12/22/17 MRSA Screen - Final, Complete MRSA not isolated A/P: Assessment: Thyrotoxicosis, being managed by Dr Brown Sinus tachycardia and somewhat elevated blood pressure, likely due to thyrotoxicosis LVEF 75-80%. PASP WNL. Trivial TR per echocardiogram of 12-23-17 Plan: * Dr. Oconnor discussed her case in detail with Dr Brown * BB to control heart rate and bp * Monitor labs * Echo reviewed * Management of thyrotoxicosis by medical services * Continue current regimen * Out pt f/u NOE VILLAVICENCIO Dec 24, 2017 09:20
[2017-12-24] MEDS: CHOLESTYRAMINE 4 GM (QUESTRAN LITE, PREVALITE) PKT PO SCH (09:21)
[2017-12-24] MEDS ORDERED: METO-395 PO (09:25)
--- NOTE | 2017-12-24 09:31 | Progress Note-Cardiology ---
Cardiology SOAP Progress Note Subjective: No shortness of breath or palp or syncope or cp or leg swelling. Wishes to go home Objective: I&O/Vital Signs Vital Sign - Last 12Hours 12/24/17 12/24/17 12/24/17 12/24/17 01:00 04:10 06:13 07:00 Temp 97.9 97.9 Pulse 70 77 77 70 Resp 17 17 B/P (MAP) 130/79 (96) 130/79 (96) Pulse Ox 98 98 O2 Delivery Room Air Room Air Intake and Output 12/24/17 00:00 Intake Total 1340 ml Output Total 1050 ml Balance 290 ml Weight (Pounds): 128 Weight (Ounces): 0.0 Weight (Calculated Kilograms): 58.772639 Constitutional: AAO x 3, well-developed, other (Thin-appearing) Respiratory: No accessory muscle use, lungs clear to auscultation, No crackles , No rhonchi, No rales, No stridor, No wheezing Cardiovascular: regular rate-rhythm, S1 and S2, systolic murmur (soft JEANNE at card base) Gastrointestional: No tender, soft, No guarding, No rebound, audible bowel sounds Extremities: No clubbing, No cyanosis, No significant edema Neurologic/Psychiatric: oriented x 3, grossly intact, power is 5/5 both on sides Skin: No rash on exposed areas, No ulcerations on exposed areas Results/Procedures: Labs Microbiology 12/22/17 MRSA Screen - Final, Complete MRSA not isolated Laboratory Tests 12/22/17 15:36 12/23/17 03:25 A/P: Assessment: Thyrotoxicosis, being managed by Dr Brown Sinus tachycardia and somewhat elevated blood pressure, likely due to thyrotoxicosis, now much better controlled LVEF 75-80%. PASP WNL. Trivial TR per echocardiogram of 12-23-17 Plan: * BB to control heart rate and bp * Management of thyrotoxicosis by the [facility] * Continue current regimen * With the kind of meds she is on, we warned her against while on these meds. She understands and states she will comply * Out pt f/u QIUANA SAXENA MD FACP FAC CCDS Dec 24, 2017 09:31
--- NOTE | 2017-12-24 10:35 | Progress Note-Hospitalist ---
Standard Progress Note Progress Notes/Assess & Plan Date Seen 12/24/17 Time Seen by Provider: 10:30 Diagnosis Assessment: Acute thyroid storm critically ill now stable on PTU and Hydrocortisone Assess & Plan/Chief Complaint The patient is a 22-year-old female who was here for [employer] training from her home in [place]. She had a collapsed Sunday afternoon while at drill activity. 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 She was then engage in any drill while wearing protective gear and feeling quite hot and then she collapsed. She apparently has noted a decline in physical activity and has lost weight over the past several months. While working her up in the emergency room she was discovered to have a TSH of 0 and was admitted. She has subsequently been placed on beta blockers and propylthiouracil. She is feeling better. She is eager to go home and her mother has come to take her home. She has no physician in [place]. I explained the necessity for her to make arrangements to have follow-up with a [place] physician to manage her situation. Even after repeating the reasons for this I am not sure that I convinced her of the need. She is also not taking any control and this should be achieved for the use of propylthiouracil and suppression of thyroid function. Physical exam: She is slender alert and pleasant. Lungs are clear to auscultation. CV shows a controlled rate. There is no fine tremor demonstrated Impression: Hyperthyroidism/storm Plan: Discharge. SEE discharge sequence Labs Laboratory Tests 12/22/17 15:36 12/23/17 03:25 Final Diagnosis Hypothyroidism/storm MELO REHMAN MD Dec 24, 2017 10:35
[2017-12-24] MEDS ORDERED: PROP50TA2 PO (10:52)
--- NOTE | 2017-12-24 10:56 | Discharge Instructions ---
Discharge Instructions Patient Instructions Patient Instructions: Your condition is completely manageable but will require you to see a [place] physician within the month. You will need to take the propylthiouracil for as long as one year. As it controls your thyroid gland you will likely be able to stop your metoprolol. You need to have dependable control immediately as the propylthiouracil would have an effect on a baby's thyroid. Activity & Diet Discharge Diet: No Restrictions Activity as Tolerated: Yes MELO REHMAN MD Dec 24, 2017 10:56
== END 2017-12-24 12:10 | disposition home or self-care (01) | DRG 644 ==
LOC: ER 15:07 → ICU 20:08 → 4TH 12-23 12:33
PROVIDERS: ADMIT Internal Medicine; ATTEND Internal Medicine
DX: E05.91 Thyrotoxicosis, unspecified with thyrotoxic crisis or storm (principal); R45.851 Suicidal ideations; F41.1 Generalized anxiety disorder; L80 Vitiligo
CPT/HCPCS: 36415; 71045; 80053; 80306; 80320; 81000; 82550; 83735; 84100; 84439; 84443; 84484; 84703; 85025; 86141; 87081; 93041; 93306; 96360; 96361

== ENCOUNTER 2018-11-01 12:37 | Emergency (ER) | payer SELFPAY ==
[~2018-11-01] VITALS: Ht 167.6 cm; Wt 63.5 kg
[~2018-11-01 12:37] MED LIST: METO-395 PO; PROP50TA2 PO
--- OUTSIDE RECORDS SUMMARY | 2018-11-01 12:40 | XMS REPORT | Continuity of Care Document ---
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 Medications Active Medications Medication Dose Units Route Sig Qty Days Start Date Status Sulfamethox/Tmp [Bactrim Ds] 1 EACH PO Twice a Day 14 October 21, 2018 Active Problem List Inactive/Resolved Problems Medical Problem Onset Date Status Abscess of skin or subcutaneous tissue Inactive Procedures No known history of procedures. Relevant Diagnostic Tests and/or Laboratory Data No known relevant diagnostic tests, laboratory data, and/or discharge summary. Chief Complaint and Reason for Visit Encounter Admit Date Chief Complaint Reason for Visit Departed Emergency October 21, 2018 8:17pm hard area under her arm Hospital Discharge Instructions Additional Discharge Instructions Warm moist heat to the affected area 3-4 times daily for the next week. Take the antibiotic as directed. You were given a prescription to fill tomorrow. You are to take it twice daily until gone. Do not shave your underarm area until this has resolved. Avoid squeezing the area. Contacted a primary care provider of your choice to schedule follow-up in 3-4 days, sooner if your symptoms worsen Seek urgent recheck if you develop fevers greater than 101, worsening pain, or persistent drainage. Instruction/Education Provided Abscess (ED) Hospital Discharge Medications Medication Dose Units Route Sig Qty Days Order Date Status Instructions Sulfamethox/Tmp 1 EACH PO Twice a Day 14 October 21, 2018 Active Encounters Encounter Facility Location Admit/Visit Date Discharge/Departure Date Attending Provider Departed Emergency [facility] Emergency Department October 21, 2018 8:17pm October 21, 2018 11:23pm Functional Status No known functional status. Immunizations No known immunizations. Payers Payer Name Policy Type Covered Alliance Party Covered Alliance Party Id Relationship Subscriber Subscriber Id Self Pay Personal Payment ([employer] - No Insurance) Plan of Care Instructions Abscess (ED) Social History No known social history. Vital Signs Vital Reading Result Reference Range Collection Date/Time Height 5 ft 6 in October 21, 2018 8:20pm Weight 63.503 kg October 21, 2018 8:20pm Temperature 97.7 F 96.8 F-100.4 F October 21, 2018 8:20pm Pulse 55 BPM 60-100 October 21, 2018 8:20pm Respiration 18 RPM 10-24 October 21, 2018 8:20pm Pulse Oximetry 99 % 90-100 October 21, 2018 8:20pm Blood Pressure Systolic 117 -139 October 21, 2018 8:20pm Blood Pressure Diastolic 59 -89 October 21, 2018 8:20pm Body Mass Index n/a
--- OUTSIDE RECORDS SUMMARY | 2018-11-01 12:40 | XMS REPORT | Continuity of Care Document ---
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 Immunizations No known immunizations. Payers Payer Name Policy Type Covered Democrat Covered Democrat Id Relationship Subscriber Subscriber Id Self Pay [...]
--- OUTSIDE RECORDS SUMMARY | 2018-11-01 12:41 | XMS REPORT | Continuity of Care Document ---
Author Author [facility] Organization [facility] Address Unknown Phone Unavailable Allergies Active Description Code Type Severity Reaction Onset Reported/Identified Relationship to Patient Clinical Status Yes No Known Medication Allergies NKMA N/A N/A Yes No Known Allergies No Known Allergies Drug Allergy Unknown N/A 2014 Yes avocado [id number] Drug Allergy Unknown N/A 12/22/2017 Yes latex [id number] Drug Allergy Unknown N/A 12/22/2017 Yes No Known Drug Allergies [id number] Drug Allergy Unknown N/A 12/22/2017 Yes No Known Allergies Allergy Unknown N/A 10/21/2018 Medications Medication Packaging Start Date Stop Date Route Dosage Sig Bactrim Ds 10/21/2018 PO 1 tab BID Problems Date Dx Coded Attending Type Code Diagnosis Diagnosed By 12/24/2017 MARBELLA LOVE DO, Ot E05.91 THYROTOXICOSIS, UNSPECIFIED WITH THYROTO 12/24/2017 MARBELLA LOVE DO Ot F41.1 GENERALIZED ANXIETY DISORDER 12/24/2017 MARBELLA LOVE DO Ot L80 VITILIGO 12/24/2017 MARBELLA LOVE DO Ot R45.851 SUICIDAL IDEATIONS 10/21/2018 CHASTITY BLANCO, NAOMY Sinha L02.411 Cutaneous abscess of right axilla Procedures There is no data. Results Test Result Range Complete blood count (CBC) with automated white blood cell (WBC) differential - 12/22/17 15:36 Blood leukocytes automated count (number/volume) 12.9 10*3/uL 4.3-11.0 Blood erythrocytes automated count (number/volume) 4.21 10*6/uL 4.35-5.85 Venous blood hemoglobin measurement (mass/volume) 12.6 g/dL 11.5-16.0 Blood hematocrit (volume fraction) 35 % 35-52 Automated erythrocyte mean corpuscular volume 82 [foz_us] 80-99 Automated erythrocyte mean corpuscular hemoglobin (mass per erythrocyte) 30 pg 25-34 Automated erythrocyte mean corpuscular hemoglobin concentration measurement ( mass/volume) 36 g/dL 32-36 Automated erythrocyte distribution width ratio 11.3 % 10.0-14.5 Automated blood platelet count (count/volume) 226 10*3/uL 130-400 Automated blood platelet mean volume measurement 10.9 [foz_us] 7.4-10.4 Automated blood neutrophils/100 leukocytes 79 % 42-75 Automated blood lymphocytes/100 leukocytes 9 % 12-44 Blood monocytes/100 leukocytes 12 % 0-12 Automated blood eosinophils/100 leukocytes 0 % 0-10 Automated blood basophils/100 leukocytes 0 % 0-10 Blood neutrophils automated count (number/volume) 10.2 10*3 1.8-7.8 Blood lymphocytes automated count (number/volume) 1.2 10*3 1.0-4.0 Blood monocytes automated count (number/volume) 1.5 10*3 0.0-1.0 Automated eosinophil count 0.0 10*3/uL 0.0-0.3 Automated blood basophil count (count/volume) 0.0 10*3/uL 0.0-0.1 Comprehensive metabolic panel - 12/22/17 15:36 Serum or plasma sodium measurement (moles/volume) 136 mmol/L 135-145 Serum or plasma potassium measurement (moles/volume) 3.7 mmol/L 3.6-5.0 Serum or plasma chloride measurement (moles/volume) 106 mmol/L 98-107 Carbon dioxide 22 mmol/L 21-32 Serum or plasma anion gap determination (moles/volume) 8 mmol/L 5-14 Serum or plasma urea nitrogen measurement (mass/volume) 14 mg/dL 7-18 Serum or plasma creatinine measurement (mass/volume) 0.78 mg/dL 0.60-1.30 Serum or plasma urea nitrogen/creatinine mass ratio 18 NRG Serum or plasma creatinine measurement with calculation of estimated glomerular filtration rate > NRG Serum or plasma glucose measurement (mass/volume) 115 mg/dL 70-105 Serum or plasma calcium measurement (mass/volume) 9.3 mg/dL 8.5-10.1 Serum or plasma total bilirubin measurement (mass/volume) 0.5 mg/dL 0.1-1.0 Serum or plasma alkaline phosphatase measurement (enzymatic activity/volume) 61 U/L 40-136 Serum or plasma aspartate aminotransferase measurement (enzymatic activity/ volume) 28 U/L 5-34 Serum or plasma alanine aminotransferase measurement (enzymatic activity/volume ) 51 U/L 0-55 Serum or plasma protein measurement (mass/volume) 7.1 g/dL 6.4-8.2 Serum or plasma albumin measurement (mass/volume) 4.0 g/dL 3.2-4.5 Magnesium - 12/22/17 15:36 Magnesium 2.0 mg/dL 1.8-2.4 Serum or plasma creatine kinase measurement (enzymatic activity/volume) - 12/22 15:36 Serum or plasma creatine kinase measurement (enzymatic activity/volume) 129 U/L 29-168 Serum or plasma troponin i.cardiac measurement (mass/volume) - 12/22/17 15:36 Serum or plasma troponin i.cardiac measurement (mass/volume) < ng/ mL <0.30 Serum or plasma thyroxine (T4) free measurement (mass/volume) - 12/22/17 15:36 Serum or plasma thyroxine (T4) free measurement (mass/volume) 3.26 ng/dL 0.70-1.48 Serum or plasma thyrotropin measurement by detection limit <=0.05 miu/l (units/ volume) - 12/22/17 15:36 Serum or plasma thyrotropin measurement by detection limit <=0.05 miu/l (units/ volume) 0.00 u[iU]/mL 0.35-4.94 Serum or plasma C reactive protein measurement (mass/volume) - 12/22/17 15:36 Serum or plasma C reactive protein measurement (mass/volume) 0.04 mg /dL 0.00-0.50 Serum or plasma ethanol measurement (mass/volume) - 12/22/17 15:36 Serum or plasma ethanol measurement (mass/volume) < mg/dL <10 Complete urinalysis with reflex to culture - 12/22/17 17:12 Urine color determination YELLOW NRG Urine clarity determination CLEAR NRG Urine pH measurement by test strip 5 5-9 Specific gravity of urine by test strip 1.010 1.016- 1.022 Urine protein assay by test strip, semi-quantitative NEGATIVE NEGATIVE Urine glucose detection by automated test strip NEGATIVE NEGATIVE Erythrocytes detection in urine sediment by light microscopy 3+ NEGATIVE Urine ketones detection by automated test strip NEGATIVE NEGATIVE Urine nitrite detection by test strip NEGATIVE NEGATIVE Urine total bilirubin detection by test strip NEGATIVE NEGATIVE Urine urobilinogen measurement by automated test strip (mass/volume) NORMAL NORMAL Urine leukocyte esterase detection by dipstick 1+ NEGATIVE Automated urine sediment erythrocyte count by microscopy (number/high power field) NONE NRG Automated urine sediment leukocyte count by microscopy (number/high power field ) RARE NRG Bacteria detection in urine sediment by light microscopy NEGATIVE NRG Squamous epithelial cells detection in urine sediment by light microscopy 5-10 NRG Crystals detection in urine sediment by light microscopy NONE NRG Casts detection in urine sediment by light microscopy NONE NRG Mucus detection in urine sediment by light microscopy NEGATIVE NRG Complete urinalysis with reflex to culture NO NRG Urine drug screening test - 12/22/17 17:12 Urine phencyclidine detection by screening method NEGATIVE NEGATIVE Urine benzodiazepines detection by screening method NEGATIVE NEGATIVE Urine cocaine detection NEGATIVE NEGATIVE Urine amphetamines detection by screening method NEGATIVE NEGATIVE Urine methamphetamine detection by screening method NEGATIVE NEGATIVE Urine cannabinoids detection by screening method NEGATIVE NEGATIVE Urine opiates detection by screening method NEGATIVE NEGATIVE Urine barbiturates detection NEGATIVE NEGATIVE Screening urine tricyclic antidepressants detection NEGATIVE NEGATIVE Urine methadone detection by screening method NEGATIVE NEGATIVE Urine oxycodone detection NEGATIVE NEGATIVE Urine propoxyphene detection NEGATIVE NEGATIVE Urine beta human chorionic gonadotropin (hCG) measurement - 12/22/17 17:12 Urine beta human chorionic gonadotropin (hCG) measurement NEGATIVE NEGATIVE Methicillin resistant Staphylococcus aureus (MRSA) screening culture - 20:30 Methicillin resistant Staphylococcus aureus (MRSA) screening culture NEG NRG Complete blood count (CBC) with automated white blood cell (WBC) differential - 12/23/17 03:25 Blood leukocytes automated count (number/volume) 4.5 10*3/uL 4.3-11.0 Blood erythrocytes automated count (number/volume) 3.72 10*6/uL 4.35-5.85 Venous blood hemoglobin measurement (mass/volume) 11.0 g/dL 11.5-16.0 Blood hematocrit (volume fraction) 31 % 35-52 Automated erythrocyte mean corpuscular volume 84 [foz_us] 80-99 Automated erythrocyte mean corpuscular hemoglobin (mass per erythrocyte) 30 pg 25-34 Automated erythrocyte mean corpuscular hemoglobin concentration measurement ( mass/volume) 35 g/dL 32-36 Automated erythrocyte distribution width ratio 11.4 % 10.0-14.5 Automated blood platelet count (count/volume) 169 10*3/uL 130-400 Automated blood platelet mean volume measurement 10.7 [foz_us] 7.4-10.4 Automated blood neutrophils/100 leukocytes 67 % 42-75 Automated blood lymphocytes/100 leukocytes 25 % 12-44 Blood monocytes/100 leukocytes 8 % 0-12 Automated blood eosinophils/100 leukocytes 0 % 0-10 Automated blood basophils/100 leukocytes 0 % 0-10 Blood neutrophils automated count (number/volume) 3.0 10*3 1.8-7.8 Blood lymphocytes automated count (number/volume) 1.1 10*3 1.0-4.0 Blood monocytes automated count (number/volume) 0.4 10*3 0.0-1.0 Automated eosinophil count 0.0 10*3/uL 0.0-0.3 Automated blood basophil count (count/volume) 0.0 10*3/uL 0.0-0.1 Comprehensive metabolic panel - 12/23/17 03:25 Serum or plasma sodium measurement (moles/volume) 139 mmol/L 135-145 Serum or plasma potassium measurement (moles/volume) 4.1 mmol/L 3.6-5.0 Serum or plasma chloride measurement (moles/volume) 113 mmol/L 98-107 Carbon dioxide 19 mmol/L 21-32 Serum or plasma anion gap determination (moles/volume) 7 mmol/L 5-14 Serum or plasma urea nitrogen measurement (mass/volume) 11 mg/dL 7-18 Serum or plasma creatinine measurement (mass/volume) 0.59 mg/dL 0.60-1.30 Serum or plasma urea nitrogen/creatinine mass ratio 19 NRG Serum or plasma creatinine measurement with calculation of estimated glomerular filtration rate > NRG Serum or plasma glucose measurement (mass/volume) 124 mg/dL 70-105 Serum or plasma calcium measurement (mass/volume) 8.1 mg/dL 8.5-10.1 Serum or plasma total bilirubin measurement (mass/volume) 0.4 mg/dL 0.1-1.0 Serum or plasma alkaline phosphatase measurement (enzymatic activity/volume) 50 U/L 40-136 Serum or plasma aspartate aminotransferase measurement (enzymatic activity/ volume) 35 U/L 5-34 Serum or plasma alanine aminotransferase measurement (enzymatic activity/volume ) 47 U/L 0-55 Serum or plasma protein measurement (mass/volume) 5.6 g/dL 6.4-8.2 Serum or plasma albumin measurement (mass/volume) 3.2 g/dL 3.2-4.5 Serum or plasma phosphate measurement (mass/volume) - 12/23/17 03:25 Serum or plasma phosphate measurement (mass/volume) 4.2 mg/dL 2.3-4.7 Magnesium - 12/23/17 03:25 Magnesium 1.7 mg/dL 1.8-2.4 Encounters ACCT No. Visit Date/Time Discharge Status Pt. Type Provider Facility Loc./Unit Complaint [id number] 02/15/2015 23:14:00 02/16/2015 00:35:00 DIS Emergency Destini BLANCO, [facility] [id number] 09/12/2015 12:32:00 09/12/2015 23:59:00 DIS Outpatient Lili Loyd Via [facility] Mur IC NPV ABCESS [id number] 02/15/2015 23:41:38 ACT Document Registration [id number] 12/22/2017 20:08:00 12/24/2017 12:10:00 DIS Inpatient MARBELLA LOVE DO Via [facility] 4TH THYROID STORM [id number] 10/21/2018 20:17:00 10/21/2018 23:23:00 DIS Emergency CHASTITY BLANCO, [facility] hard area under her arm
--- OUTSIDE RECORDS SUMMARY | 2018-11-01 12:41 | XMS REPORT | Continuity of Care Document ---
Author Author [facility] Organization [facility] Address [address] [place] [address] Care Team Providers Care Merchant Police Name Role Phone Primary Care, You Choose PCP Unavailable [facility] Allergies, Adverse Reactions, Alerts No known allergies. Medications Active Medications Medication Dose Units Route Sig Qty Days Start Date Status Sulfamethox/Tmp [Bactrim Ds] 1 EACH PO Twice a Day 14 October 21, 2018 Active Problem List Active Problems Medical Problem Onset Date Status Abscess of skin or subcutaneous tissue Active Procedures No known history of procedures. Relevant [...] Date Discharge/Departure Date Attending Provider Departed Emergency [facility] Emergency Department October 21, 2018 8:17pm October 21, 2018 11:23pm Functional Status No known functional status. Immunizations No known immunizations. Payers Payer Name Policy Type Covered Green Party Covered Green Party Id Relationship Subscriber Subscriber Id Self [...]
--- NOTE | 2018-11-01 13:11 | ED General ---
General Chief Complaint: General Problems/Pain Stated Complaint: L ARM PAIN Nursing Triage Note: Pt arrived POV to ED et ambulated to ed bed. Pt states for the last couple weeks she has been extra fatigued, chest tightness, left arm numbness, et n/v. Pt states she just feels weird. Nursing Sepsis Screen: No Definite Risk Source of Information: Patient Exam Limitations: No Limitations History of Present Illness Date Seen by Provider: Nov 01, 2018 Time Seen by Provider: 13:09 Initial Comments To ER with reports of tingling from the medial left scapula all the way down to the left fingers. This began 2-3 weeks ago. She also states that she has unusual fatigue with any exertion and chest tightness and palpitations with any exertion to the point that she cannot do any pushups. She also has nausea and vomiting. She states that her thyroid is "all over the place" and she takes metoprolol and propranolol both for this. She is from [facility], here for [place] this weekend. 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 She currently does not have a physician that she follows with to treat her thyroid troubles. Timing/Duration: 1-2 Days Severity: Moderate Associated Systoms: No Chest Pain, No Cough, No Diaphoresis, No Fever/Chills; Malaise, Nausea/Vomiting Allergies and Home Medications Allergies Coded Allergies: avocado (Verified Allergy, Unknown, 12/22/17) latex (Verified Allergy, Unknown, 12/22/17) Home Medications Metoprolol Succinate 100 Mg Tab.er.24h, 200 MG PO DAILY Prescribed by: NOE VILLAVICENCIO on 12/24/17 0978 Propylthiouracil 50 Mg Tablet, 200 MG PO TID After one week reduced dose to 200 mg twice a day. Prescribed by: MELO REHMAN on 12/24/17 1052 Patient Home Medication List Home Medication List Reviewed: Yes Review of Systems Review of Systems Constitutional: see HPI EENTM: see HPI Respiratory: no symptoms reported Cardiovascular: see HPI, chest pain, palpitations Genitourinary: no symptoms reported Musculoskeletal: no symptoms reported Skin: no symptoms reported Psychiatric/Neurological: No Symptoms Reported Hematologic/Lymphatic: No Symptoms Reported Past Dsmqepk-Rpspde-Shxxob Hx Patient Social History Recent Foreign Travel: No Contact w/Someone Who Travel: No Recent Infectious Disease Expo: No Immunizations Up To Date Date of Influenza Vaccine: Oct 29, 2017 Seasonal Allergies Seasonal Allergies: No Past Medical History Surgeries: No Respiratory: No Cardiac: No Neurological: No Reproductive Disorders: No Female Reproductive Disorders: Denies Genitourinary: No Gastrointestinal: No Endocrine: No HEENT: No Cancer: No Psychosocial: Yes Anxiety Integumentary: No Family Medical History Patient reports no known family medical history. No Pertinent Family Hx Physical Exam Vital Signs Vital Signs - First Documented 11/01/18 12:37 Temp 97.5 Pulse 83 Resp 16 B/P (MAP) 136/87 (103) Pulse Ox 97 O2 Delivery Room Air Capillary Refill : Less Than 3 Seconds Height, Weight, BMI Height: 5'6.00" Weight: 140lbs. 0.0oz. 63.520135us; 20.7 BMI Method:Stated General Appearance: No Apparent Distress, WD/WN Eyes: Bilateral Eye Normal Inspection, Bilateral Eye PERRL, Bilateral Eye EOMI HEENT: PERRL/EOMI, TMs Normal Neck: Full Range of Motion, Normal Inspection Respiratory: Normal Breath Sounds, No Accessory Muscle Use, No Respiratory Distress Cardiovascular: Regular Rate, Rhythm, Normal Peripheral Pulses Gastrointestinal: Normal Bowel Sounds, Non Tender, Soft Extremity: Normal Capillary Refill, Normal Inspection Neurologic/Psychiatric: Alert, Oriented x3 Skin: Normal Color, Warm/Dry (5.) Progress/Results/Core Measures Suspected Sepsis Recent Fever Within 48 Hours: No Infection Criteria Present: None New/Unexplained Altered Menta: No Sepsis Screen: No Definite Risk SIRS Temperature:97.5 Pulse: 83 Respiratory Rate: 16 Laboratory Tests 11/01/18 13:06: White Blood Count 7.8 Blood Pressure 136 /87 Mean: 103 Laboratory Tests 11/01/18 13:06: Creatinine 0.76, Platelet Count 174, Total Bilirubin 0.8 Results/Orders Lab Results Laboratory Tests Test 11/01/18 13:06 11/01/18 13:41 Range/Units White Blood Count 7.8 4.3-11.0 10^3/uL Red Blood Count 4.69 4.35-5.85 10^6/uL Hemoglobin 14.1 11.5-16.0 G/DL Hematocrit 41 35-52 % Mean Corpuscular Volume 87 80-99 FL Mean Corpuscular Hemoglobin 30 25-34 PG Mean Corpuscular Hemoglobin Concent 35 32-36 G/DL Red Cell Distribution Width 12.7 10.0-14.5 % Platelet Count 174 130-400 10^3/uL Mean Platelet Volume 10.7 H 7.4-10.4 FL Neutrophils (%) (Auto) 65 42-75 % Lymphocytes (%) (Auto) 29 12-44 % Monocytes (%) (Auto) 5 0-12 % Eosinophils (%) (Auto) 0 0-10 % Basophils (%) (Auto) 0 0-10 % Neutrophils # (Auto) 5.1 1.8-7.8 X 10^3 Lymphocytes # (Auto) 2.2 1.0-4.0 X 10^3 Monocytes # (Auto) 0.4 0.0-1.0 X 10^3 Eosinophils # (Auto) 0.0 0.0-0.3 10^3/uL Basophils # (Auto) 0.0 0.0-0.1 10^3/uL Sodium Level 136 135-145 MMOL/L Potassium Level 3.5 L 3.6-5.0 MMOL/L Chloride Level 105 98-107 MMOL/L Carbon Dioxide Level 23 21-32 MMOL/L Anion Gap 8 5-14 MMOL/L Blood Urea Nitrogen 11 7-18 MG/DL Creatinine 0.76 0.60-1.30 MG/DL Estimat Glomerular Filtration Rate > 60 BUN/Creatinine Ratio 14 Glucose Level 95 70-105 MG/DL Calcium Level 9.2 8.5-10.1 MG/DL Corrected Calcium 8.5-10.1 MG/DL Total Bilirubin 0.8 0.1-1.0 MG/DL Aspartate Amino Transf (AST/SGOT) 19 5-34 U/L Alanine Aminotransferase (ALT/SGPT) 17 0-55 U/L Alkaline Phosphatase 69 40-136 U/L Total Creatine Kinase 168 29-168 U/L Myoglobin 40.3 10.0-92.0 NG/ML B-Type Natriuretic Peptide 12.0 <100.0 PG/ML Total Protein 8.0 6.4-8.2 GM/DL Albumin 4.6 H 3.2-4.5 GM/DL Thyroid Stimulating Hormone (TSH) 0.13 L 0.35-4.94 UIU/ML Free Thyroxine 1.12 0.70-1.48 NG/DL Serum Test, Qualitative NEGATIVE NEGATIVE Monoscreen NEGATIVE NEGATIVE Urine Color YELLOW Urine Clarity CLEAR Urine pH 6 5-9 Urine Specific [place] 1.015 L 1.016-1.022 Urine Protein NEGATIVE NEGATIVE Urine Glucose (UA) NEGATIVE NEGATIVE Urine Ketones 1+ H NEGATIVE Urine Nitrite NEGATIVE NEGATIVE Urine Bilirubin NEGATIVE NEGATIVE Urine Urobilinogen NORMAL NORMAL MG/DL Urine Leukocyte Esterase 3+ H NEGATIVE Urine RBC (Auto) NEGATIVE NEGATIVE Urine RBC NONE /HPF Urine WBC 5-10 H /HPF Urine Squamous Epithelial Cells 2-5 /HPF Urine Crystals NONE /LPF Urine Bacteria FEW H /HPF Urine Casts NONE /LPF Urine Mucus NEGATIVE /LPF Urine Culture Indicated YES My Orders Orders - JIMMY ZELAYA APRN Cbc With Automated Diff (11/01/18 13:07) Comprehensive Metabolic Panel (11/01/18 13:07) Hcg,Qualitative Serum (11/01/18 13:07) Thyroid Stimulating Hormone (11/01/18 13:07) Free T4 (Free Thyroxine) (11/01/18 13:07) Myoglobin Serum (11/01/18 13:07) Creatine Kinase (11/01/18 13:07) Monotest (11/01/18 13:07) Iv Heplock-Insert (Order) (11/01/18 13:07) Ondansetron Injection (Zofran Injectio (11/01/18 13:15) Ua Culture If Indicated (11/01/18 13:11) Ekg Tracing (11/01/18 13:11) BNP (11/01/18 13:11) Urine Culture (11/01/18 13:41) Medications Given in ED Current Medications Medications Dose Ordered Sig/Emerita Route Start Time Stop Time Status Last Admin Dose Admin Ondansetron HCl 8 mg ONCE ONCE IVP 11/01/18 13:15 11/01/18 13:16 DC 11/01/18 13:18 8 MG Vital Signs/I&O 11/01/18 12:37 Temp 97.5 Pulse 83 Resp 16 B/P (MAP) 136/87 (103) Pulse Ox 97 O2 Delivery Room Air Capillary Refill : Less Than 3 Seconds Blood Pressure Mean: 103 Departure Impression Primary Impression: Cervical radiculopathy Additional Impressions: Activity intolerance History of thyrotoxicosis Urinary tract infection Qualified Codes: N30.00 - Acute cystitis without hematuria Disposition: HOME, SELF-CARE Condition: Stable Departure-Patient Inst. Decision time for Depature: 14:02 Referrals: NO,LOCAL PHYSICIAN (PCP/Family) Primary Care Physician Patient Instructions: Fatigue, Palpitations, Radiculopathy, Urinary Tract Infection, Adult (DC) Add. Discharge Instructions: 1. Continue taking current medications. You must establish with a primary care physician to further evaluate and manage your symptoms. Return to ER for any concerns. All discharge instructions reviewed with patient and/or family. Voiced understanding. Scripts Cefuroxime Axetil (Cefuroxime) 250 Mg Tablet 250 MG PO BID, #10 TAB Prov: JIMMY ZELAYA APRN 11/01/18 Work/School Note: Work Release Form Date Seen in the Emergency Department: Nov 01, 2018 Return to Work: Nov 03, 2018 JIMMY ZELAYA APRN Nov 01, 2018 13:11
[2018-11-01 13:12] LABS: BASOPHILS % (AUTO) 0 % (0-10); EOSINOPHILS % (AUTO) 0 % (0-10); HEMATOCRIT 41 % (35-52); HEMOGLOBIN 14.1 G/DL (11.5-16.0); LYMPHOCYTES # (AUTO) 2.2 X 10^3 (1.0-4.0); LYMPHOCYTES % (AUTO) 29 % (12-44); MEAN CORPUSCULAR HEMOGLOBIN 30 PG (25-34); MEAN CORPUSCULAR HGB CONC 35 G/DL (32-36); MEAN CORPUSCULAR VOLUME 87 FL (80-99); MEAN PLATELET VOLUME 10.7 FL (7.4-10.4); MONOCYTES # (AUTO) 0.4 X 10^3 (0.0-1.0); MONOCYTES % (AUTO) 5 % (0-12); NEUTROPHILS # (AUTO) 5.1 X 10^3 (1.8-7.8); NEUTROPHILS % (AUTO) 65 % (42-75); PLATELET COUNT 174 10^3/uL (130-400); RED BLOOD COUNT 4.69 10^6/uL (4.35-5.85); RED CELL DISTRIBUTION WIDTH 12.7 % (10.0-14.5); WHITE BLOOD COUNT 7.8 10^3/uL (4.3-11.0)
[2018-11-01] MEDS ORDERED: ONDANSETRON 4 MG/2 ML (SDV) Z0FRAN IVP ONE (13:15)
[2018-11-01 13:34] LABS: ALANINE AMINOTRANSFERASE 17 U/L (0-55); ALBUMIN 4.6 GM/DL (3.2-4.5); ALKALINE PHOSPHATASE 69 U/L (40-136); BILIRUBIN,TOTAL 0.8 MG/DL (0.1-1.0); BUN/CREATININE RATIO 14; CALCIUM 9.2 MG/DL (8.5-10.1); CARBON DIOXIDE 23 MMOL/L (21-32); CHLORIDE 105 MMOL/L (98-107); CREATINE KINASE 168 U/L (29-168); CREATININE SERUM 0.76 MG/DL (0.60-1.30); GFR ESTIMATED > 60; GLUCOSE 95 MG/DL (70-105); POTASSIUM 3.5 MMOL/L (3.6-5.0); SODIUM 136 MMOL/L (135-145)
[2018-11-01 13:48] LABS: BILIRUBIN,URINE NEGATIVE (NEGATIVE); CLARITY,URINE CLEAR; GLUCOSE, URINE (UA) NEGATIVE (NEGATIVE); KETONES,URINE 1+ (NEGATIVE); LEUKOCYTE ESTERASE ,URINE 3+ (NEGATIVE); NITRITE,URINE NEGATIVE (NEGATIVE); PH,URINE 6 (5-9); PROTEIN,URINE NEGATIVE (NEGATIVE); UROBILINOGEN,URINE NORMAL (NORMAL)
[2018-11-01 13:54] LABS: FREE T4 (FREE THYROXINE) 1.12 NG/DL (0.70-1.48); MYOGLOBIN SERUM 40.3 NG/ML (10.0-92.0)
[2018-11-01 14:05] LABS: COLOR,URINE YELLOW
[2018-11-01 14:06] LABS: BACTERIA,URINE FEW /HPF
[2018-11-01] MEDS ORDERED: CEFU250T80 PO (14:09)
[2018-11-01 14:25] VITALS: BP 113/62
== END 2018-11-01 14:25 | disposition home or self-care (01) ==
LOC: EDUNIT# 12:37 → ER 12:38
DX: M54.12 Radiculopathy, cervical region (principal); N39.0 Urinary tract infection, site not specified; F41.9 Anxiety disorder, unspecified; R68.89 Other general symptoms and signs; Z91.040 Latex allergy status; Z86.39 Personal history of other endocrine, nutritional and metabolic disease
CPT/HCPCS: 36415; 80053; 81000; 82550; 83874; 83880; 84439; 84443; 84703; 85025; 86308; 87088